=== PATIENT | female | born 1965 | race African-American/Black ===

== ENCOUNTER 2017-08-27 09:59 | Outpatient (CLI) | payer BC ==
--- NOTE | 2017-08-28 15:20 | Mammography Report ---
BILATERAL DIGITAL SCREENING MAMMOGRAM with CAD and DIGITAL BREAST TOMOSYNTHESIS (DBT) : 08/27/17 09:30:00 CLINICAL: Routine screening. COMPARISON:01/31/16 FINDINGS: The breasts are heterogeneously dense, which may obscure small masses.Bilateral asymmetries require additional imaging. No architectural distortion or suspicious calcifications. IMPRESSION: Bilateral asymmetries require additional imaging. BI-RADS CATEGORY: 0--Needs Additional Imaging RECOMMENDATION: Recall for bilateral true lateral and spot compression views and bilateral breast ultrasound. COMMENT: Patient follow-up letters are generated by our [employer] application.
== END 2017-08-27 10:00 | disposition home or self-care (01) ==
LOC: MAMMO 09:59
PROVIDERS: ATTEND Obstetrics & Gynecology Gynecology
DX: Z12.31 Encounter for screening mammogram for malignant neoplasm of breast (principal)
CPT/HCPCS: 77063; 77067

== ENCOUNTER 2017-10-01 13:17 | Outpatient (CLI) | payer BC ==
--- NOTE | 2017-10-02 09:43 | Mammography Report ---
BILATERAL DIGITAL DIAGNOSTIC MAMMOGRAM and BILATERAL BREAST ULTRASOUND: 10/01/17 13:17:00 CLINICAL: Recalled for bilateral asymmetries. COMPARISON:08/27/17 screening FINDINGS: Bilateral additional mammographic views were performed. Left asymmetries which were only identified on the previous tomographic views are not identified on lateral and spot views of the left breast. An oval circumscribed right upper asymmetry is identified in on ML views without and with spot compression. Ultrasound of the upper right breast was performed and demonstrated no mass, cyst or shadowing to correlate with the mammographic asymmetry which is approximately 10 cm from the nipple. The technologist measured something at 3 o'clock next to the nipple but it is probably a benign fat lobule measuring 1.1 x 0.3 x 0.6 cm. Ultrasound of the left breast performed and demonstrated an oval benign cyst at 6 o'clock 4 cm from the nipple measuring 1.2 x 0.9 x 1.1 cm. An adjacent complex cyst with low level internal echoes measures 6 x 5 x 4 mm. These correlate with mammographic asymmetries identified on the previous tomographic images. In addition, an oval complex cyst versus solid nodule at 3 o'clock 3 cm from the nipple measures 4 x 3 x 2 mm and an oval complex cyst versus solid nodule at 7 o'clock 6 cm from the nipple measures 6 x 3 x 8 mm. A solid nodule versus complex cyst at 9 o'clock 5 cm from the nipple measures 4 x 5 x 5 mm. IMPRESSION: A probably benign and right upper mammographic asymmetry on lateral and MLO tomosynthesis views and probably benign nodules or cysts by ultrasound. Recommend three-month followup bilateral breast ultrasound and the followup examination should be scheduled at [facility]. BI-RADS CATEGORY: 3 - - Probably Benign ACR BI-RADS MAMMOGRAPHIC CODES: 0 = Needs additional imaging evaluation; 1 = Negative; 2 = Benign; 3 = Probably benign; 4 = Suspicious; 5 = Malignant; 6 = Known biopsy-proven malignancy COMMENT: 1. Dense breast tissue, i.e., adenosis, fibrocystic changes, etc., may obscure an underlying neoplasm. 2. Approximately 10% of cancers are not detected with mammography. 3. A negative mammography report should not delay biopsy if a clinically suspicious mass is present. COMMENT: Patient follow-up letters are generated via our [employer] application.
== END 2017-10-01 13:18 | disposition home or self-care (01) ==
LOC: MAMMO 13:17
PROVIDERS: ATTEND Obstetrics & Gynecology Gynecology
DX: N64.89 Other specified disorders of breast (principal); R92.8 Other abnormal and inconclusive findings on diagnostic imaging of breast
CPT/HCPCS: 77066